=== PATIENT | female | born 2000 ===

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

== ENCOUNTER 2018-05-28 09:18 | Emergency (ER) | payer MEDICAID ==
[2018-05-28 09:21] VITALS: BMI 25.9
--- NOTE | 2018-05-28 09:42 | ED PDOC ---
Lower Extremity Pain/Injury Time Seen by Provider: 05/28/18 09:33 Chief Complaint (Nursing): Lower Extremity Problem/Injury Chief Complaint (Provider): left knee pain and swelling History Per: Patient History/Exam Limitations: no limitations Onset/Duration Of Symptoms: Days (last night) Current Symptoms Are (Timing): Still Present Additional Complaint(s): Lucretia Guido is a 18 year old female, with a past medical history of Janice's disease, thyroiditis and asthma, who presents to the emergency department complaining of left knee pain and swelling. Patient states she twisted her knee last night. She reports pain on weight bearing. She denies any other medical complaints. PMD: None provided. Past Medical History Reviewed: Historical Data, Nursing Documentation, Vital Signs Vital Signs: Last Vital Signs Temp 98.4 F 05/28/18 09:21 Pulse 86 05/28/18 09:21 Resp 17 05/28/18 09:21 BP 104/64 05/28/18 09:21 Pulse Ox 98 05/28/18 09:21 - Medical History PMH: Asthma, Bronchitis, Hypothyroidism Other PMH: Janice's disease, thyroiditis - Surgical History Surgical History: Tonsillectomy - Family History Family History: States: Unknown Family Hx - Social History Current smoker - smoking cessation education provided: Yes (Light smoker <10 cigarettes daily) Alcohol: None Drugs: Denies - Home Medications Home Medications: Ambulatory Orders Medication Instructions Recorded Levothyroxine [Synthroid] 112 mcg PO DAILY 03/09/15 Doxylamine/Pyridoxine HCl (B6) 2 tab PO ASDIR #60 tab 11/30/17 [Melinda Dr 10-10 mg Tablet] Comb No.42/Folic Acid 1 tab PO DAILY #60 tab 11/30/17 [Prena1 Chew] Naproxen [Naprosyn] 500 mg PO Q12H #20 tab 05/28/18 - Allergies Allergies/Adverse Reactions: Allergies Allergy/AdvReac Type Severity Reaction Status Date / Time azithromycin [From Zithromax] Allergy SHORTNESS Verified 11/30/17 13:28 OF BREATH cinnamon Allergy SHORTNESS Verified 11/30/17 13:28 OF BREATH Review of Systems ROS Statement: Except As Marked, All Systems Reviewed And Found Negative Musculoskeletal: Positive for: Leg Pain (left knee pain and swelling) Physical Exam - Reviewed Nursing Documentation Reviewed: Yes Vital Signs Reviewed: Yes - Physical Exam Appears: Positive for: No Acute Distress Head Exam: Positive for: ATRAUMATIC, NORMAL INSPECTION, NORMOCEPHALIC Skin: Positive for: Normal Color, Warm, Dry Eye Exam: Positive for: Normal appearance, EOMI, PERRL Neck: Positive for: Normal, Painless ROM Extremity: Positive for: Normal ROM, Tenderness (Left knee suprapatellar tenderness and swelling. No crepitus or instability of knee), Swelling. Negative for: Deformity (left knee) Neurologic/Psych: Positive for: Alert, Oriented. Negative for: Motor/Sensory Deficits - ECG O2 Sat by Pulse Oximetry: 98 (RA) Pulse Ox Interpretation: Normal Medical Decision Making Medical Decision Making: Time: 09:33 Initial Plan: --Urine --Knee 3 views LT [RAD] --Reevaluation ----- Scribe Attestation: Documented by Dionte Gotti, acting as a scribe for Jose Maria Funk MD. Provider Scribe Attestation: All medical record entries made by the Scribe were at my direction and personally dictated by me. I have reviewed the chart and agree that the record accurately reflects my personal performance of the history, physical exam, medical decision making, and the department course for this patient. I have also personally directed, reviewed, and agree with the discharge instructions and disposition. Disposition - Clinical Impression Clinical Impression: Knee sprain - Patient ED Disposition Is Patient to be Admitted: No Counseled Patient/Family Regarding: Studies Performed, Diagnosis, Need For Followup, Rx Given - Disposition Referrals: Ernesto Fine III, MD [Staff Provider] - Disposition: Routine/Home Disposition Time: 11:08 Condition: FAIR Prescriptions: Naproxen [Naprosyn] 500 mg PO Q12H #20 tab Instructions: Knee Sprain (DC) Forms: [employer] (Lao)
[2018-05-28 11:54] VITALS: BP 120/67; PULSE 77; RESP 18; TEMP 98; O2SAT 100
--- NOTE | 2018-05-28 14:16 | RAD ---
Date of service: 05/28/2018 PROCEDURE: Left Knee Radiographs. HISTORY: Pain. COMPARISON: None. FINDINGS: BONES: No acute fracture or destructive bony lesion identified. JOINTS: No subluxation or dislocation identified. JOINT EFFUSION: Moderate suprasellar bursa effusion identified. OTHER FINDINGS: None. IMPRESSION: Moderate suprapatellar bursa effusion identified. No acute fracture or dislocation identified. No significant joint space narrowing cortical sclerosis or osteophyte formation present.
== END 2018-05-28 11:54 | disposition home or self-care (01) ==
LOC: H.ER 09:18
DX: S83.92XA Sprain of unspecified site of left knee, initial encounter (principal); E06.3 Autoimmune thyroiditis; F17.210 Nicotine dependence, cigarettes, uncomplicated; J45.909 Unspecified asthma, uncomplicated; X50.1XXA Overexertion from prolonged static or awkward postures, initial encounter